=== PATIENT | female | born 1940 | race Caucasian/White ===

== ENCOUNTER 2022-11-05 09:17 | Day surgery (SDC) | payer MEDICARE ==
[~2022-11-05] VITALS: Ht 162.6 cm; Wt 66.7 kg
[~2022-11-05 09:17] MED LIST: AZOP0.2S OP; BIMA01SOL; HEPARIN SOD (PORCINE) 5000UNITS/ML 1ML VIAL/SYRINGE SQ ONE; HYDR-3490 PO; LISI40TA4 PO; METO1TAB32 PO; WARF4TAB52 PO; ceFAZolin SOD 2 GM in IV 1 EA IV ONE
[2022-11-05 10:02] LABS: INR 0.99; PROTHROMBIN TIME 13.3 SECONDS (12.5-14.5)
[2022-11-05] MEDS ORDERED: LR 1,000 ML IV SCH ×2 (10:10→12:20)
[2022-11-05] MEDS ORDERED: BUPIVACAINE HCL 0.25% 30ML VIAL As Ordered ONE (10:21)
[2022-11-05] MEDS ORDERED: LIDOCAINE 1% SDV 30ML VIAL As Ordered ONE (10:21)
[2022-11-05] MEDS ORDERED: LIDOCAINE 2% 100MG/5ML SDV (FOR ANES.) As Ordered ONE (10:57)
[2022-11-05] MEDS ORDERED: ONDANSETRON 4MG 2ML VIAL As Ordered ONE (10:57)
[2022-11-05] MEDS ORDERED: propofoL 200 MG/20 ML VIAL As Ordered ONE (10:57)
[2022-11-05] MEDS ORDERED: fentaNYL 100 MCG/2 ML INJECTION As Ordered ONE (10:57)
[2022-11-05] MEDS ORDERED: PHENYLephrine 500MCG 5ML (100MCG/ML) SYRINGE As Ordered ONE (11:06)
[2022-11-05] MEDS ORDERED: ACETAMINOPHEN 1000MG 100ML IV BAG As Ordered ONE (11:07)
[2022-11-05] MEDS ORDERED: ePHEDrine SULFATE 25 MG/5 ML(5MG/ML) SYRINGE As Ordered ONE (11:59)
[2022-11-05] MEDS ORDERED: fentaNYL 100 MCG/2 ML INJECTION IV PRN (12:20)
[2022-11-05] MEDS ORDERED: ONDANSETRON 4MG 2ML VIAL IV PRN (12:20)
[2022-11-05] MEDS ORDERED: oxyCODONE 5MG TAB PO PRN (12:20)
[2022-11-05] MEDS ORDERED: OXYC5CAP56 PO (12:31)
[2022-11-05 14:12] VITALS: BP 147/88
== END 2022-11-05 15:13 | disposition home or self-care (01) ==
LOC: M SDC 09:17
PROVIDERS: ATTEND Surgery
DX: D05.12 Intraductal carcinoma in situ of left breast (principal); Z80.3 Family history of malignant neoplasm of breast; I48.91 Unspecified atrial fibrillation; I10 Essential (primary) hypertension; K21.9 Gastro-esophageal reflux disease without esophagitis; R32 Unspecified urinary incontinence; L82.1 Other seborrheic keratosis; Z79.899 Other long term (current) drug therapy; Z79.01 Long term (current) use of anticoagulants
CPT/HCPCS: 19301; 36415; 85610; 86850; 86900; 86901; 88307; J0131; J0690; J1100; J2370; J2405; J3010